=== PATIENT | female | born 1945 | race African-American/Black ===

== ENCOUNTER → 2021-04-28 | Day surgery (SDC) | payer MEDICARE, OTHER | LOC: CSHMAMMO 07:13 | PROVIDERS: ATTEND Internal Medicine | PROC: 0H9T3ZX Drainage of Right Breast, Percutaneous Approach, Diagnostic (ICD-10-PCS; principal; 2021-04-28) | DX: D05.11 Intraductal carcinoma in situ of right breast (principal) | CPT/HCPCS: 19081; 76098; 88305 ==